=== PATIENT | female | born 1945 | race Caucasian/White ===

== ENCOUNTER → 2016-06-16 | Outpatient (CLI) | payer MEDICARE, OTHER ==
[~2016-06-16] MED LIST: ALBU17IN INH; BUPR1TAB17 PO; BUPR300T34 PO; DICL50TAB PO; DIOV80TA3 PO; FISH1000 PO; FLUT1SPR2; IMIP50TA2 PO; KLOR1TAB69 PO; METF-699 PO; METF500T PO; METR0.00 TOP; MYRB25TA PO; POTA10CA PO; SIMV20TA2 PO; SING10TA32 PO; TOVI4TAB PO; TOVI8TAB PO; TRIA37.5 PO
--- NOTE | 2016-06-16 13:30 | REPMRS ---
Patient History The patient states she had a clinical breast exam in Patient is postmenopausal and has history of ovarian cancer at age 68. No known family history of cancer. Benign excisional biopsy of the left breast, 1982. Took estrogen for 1 year. Digital Woman Screen Mammo: June 16, 2016 - Exam #: [id number] Bilateral CC and MLO view(s) were taken. Technologist: Adela Martinez, Technologist Prior study comparison: June 09, 2015, digital woman screen mammo performed at [facility]. June 08, 2014, digital woman screen mammo performed at [facility]. April 24, 2013, digital woman screen mammo performed at [facility]. FINDINGS: There are scattered fibroglandular densities. There has been no change in the appearance of the mammogram from the prior studies. There is a mild amount of scattered fibroglandular density which is fairly symmetric. There is no interval development of dominant mass, architectural distortion, or clustered microcalcification suggestive of malignancy. ASSESSMENT: BI-RADS/ACR category 1 mammogram. Negative. Recommendation Routine screening mammogram in 1 year (for women over age 40). This mammogram was interpreted with the aid of an FDA-approved computer-aided dectection system. Electronically Signed By: Kalia Doan MD 06/16/16 2701
== END ==
LOC: M WHC 12:55
PROVIDERS: ATTEND Nurse Practitioner Family
DX: Z12.31 Encounter for screening mammogram for malignant neoplasm of breast (principal)

== ENCOUNTER → 2016-07-31 | Outpatient (CLI) | payer MEDICARE, OTHER | LOC: M LAB 12:46 | PROVIDERS: ATTEND Obstetrics & Gynecology | DX: C56.1 Malignant neoplasm of right ovary (principal) ==

== ENCOUNTER → 2016-10-04 | Outpatient (REF) | payer MEDICARE, OTHER ==
[2016-10-05 14:18] LABS: PERCENT SATURATION 13.4 % (13.2-37.4)
== END ==
LOC: M LAB REF 13:18
PROVIDERS: ATTEND Internal Medicine
DX: D50.9 Iron deficiency anemia, unspecified (principal)

== ENCOUNTER → 2016-10-27 | Outpatient (CLI) | payer MEDICARE, OTHER | LOC: M LAB 08:31 | PROVIDERS: ATTEND Physician Assistant | DX: C56.1 Malignant neoplasm of right ovary (principal) ==

== ENCOUNTER 2016-11-15 21:36 | Emergency (ER) | payer MEDICARE, OTHER ==
[~2016-11-15] VITALS: Ht 172.7 cm; Wt 76.4 kg
[~2016-11-15 21:36] MED LIST changes: -BUPR1TAB17 PO; +BUPR1TAB53 PO; -IMIP50TA2 PO; +IMIP50TA3 PO; -METF500T PO; +METF500T13 PO
--- NOTE | 2016-11-15 23:50 | REPUSA ---
CT of the lumbar spine without contrast Clinical history: Pain. Technique: Multiple axial CT images were obtained through the lumbar spine without administration of contrast. Coronal and sagittal 3-D reconstructed images were also obtained. Findings: The lumbar vertebral bodies are in satisfactory positioning.. There is a 5 mm anterior spondylolisthe sis of L4 upon L5. Severe degenerative disc disease is noted at L3/L4 and L4/L5. No fractures or disl ocations are demonstrated. There is no evidence of facet subluxation. Moderate facet arthropathy is s een bilaterally, most severe at L5/S1. The neural foramen appear grossly patent. The spinal canal dem onstrates normal caliber and contour without evidence of spinal stenosis. The surrounding soft tissue s are within normal limits. Impression: 1. No acute fracture or traumatic injury. 2. Moderately severe degenerative disc disease at L3/L4 and L4/L5. 3. Grade 1anterior spondylolisthesis of L4 upon L5. 4. Moderate facet arthropathy, most severe at L5/S1.
--- NOTE | 2016-11-15 23:50 | REPUSA ---
CT of the facial bones without contrast Clinical history: Pain, injury. Technique: Multiple axial CT images were obtained through the facial bones and paranasal sinuses util izing 3 mm axial slices without administration of contrast. Coronal and sagittal reconstructions were also obtained. Findings: There are postoperative changes in the right osteomeatal complex and right maxillary sinus .. Chronic mucosal changes are seen in this region.. The other paranasal sinuses are grossly unremark able. The nasal septum is deviated leftward. The visualized mastoid air cells are clear. The osseous structures do not demonstrate any acute abnormalities. The superficial soft tissues are within normal limits. Impression: Chronic postoperative changes in the right maxillary sinus. No acute fractures or trauma tic injury appreciated.
--- NOTE | 2016-11-15 23:50 | REPUSA ---
CT of the thoracic spine without contrast Clinical history: Pain. Technique: Multiple axial CT images were obtained through the thoracic spine without administration o f contrast. Coronal and sagittal 3-D reconstructed images were also obtained. Findings: The vertebral bodies are in satisfactory positioning and alignment. No fractures or dislocations are demonstrated. Intervertebral disc spaces are well-maintained. There is no evidence of facet subluxati on. The neural foramen appear grossly patent. The spinal canal demonstrates normal caliber and contou r without evidence of spinal stenosis. The surrounding soft tissues are within normal limits. Impression: No acute traumatic injury.
[2016-11-15 23:58] VITALS: BP 142/72
== END 2016-11-16 00:19 | disposition home or self-care (01) ==
LOC: M ED 21:36
DX: S00.83XA Contusion of other part of head, initial encounter (principal); S33.5XXA Sprain of ligaments of lumbar spine, initial encounter; S23.3XXA Sprain of ligaments of thoracic spine, initial encounter; W01.0XXA Fall on same level from slipping, tripping and stumbling without subsequent striking against object, initial encounter; Y92.219 Unspecified school as the place of occurrence of the external cause; Y93.89 Activity, other specified; Y99.8 Other external cause status; M51.36 Other intervertebral disc degeneration, lumbar region; M43.16 Spondylolisthesis, lumbar region; M47.817 Spondylosis without myelopathy or radiculopathy, lumbosacral region; I10 Essential (primary) hypertension; Z85.43 Personal history of malignant neoplasm of ovary; Z90.79 Acquired absence of other genital organ(s); Z79.899 Other long term (current) drug therapy; Z88.5 Allergy status to narcotic agent; Z88.8 Allergy status to other drugs, medicaments and biological substances

== ENCOUNTER → 2017-01-31 | Outpatient (CLI) | payer MEDICARE, OTHER | LOC: M LAB 09:29 | PROVIDERS: ATTEND Physician Assistant | DX: C56.1 Malignant neoplasm of right ovary (principal) ==

== ENCOUNTER → 2017-02-23 | Outpatient (REF) | payer MEDICARE, OTHER ==
[2017-02-23 14:05] LABS: BLOOD UREA NITROGEN 23 MG/DL (7-18); CREATININE FOR GFR 0.72 MG/DL (0.55-1.02); GLOMERULAR FILTRATION RATE > 60.0 (>39)
== END ==
LOC: M LABNEURO 10:29
PROVIDERS: ATTEND Psychiatry & Neurology Neurology
DX: E11.9 Type 2 diabetes mellitus without complications (principal); I10 Essential (primary) hypertension

== ENCOUNTER → 2017-06-15 | Outpatient (CLI) | payer MEDICARE, OTHER | LOC: M WHC 10:27 | DX: Z12.31 Encounter for screening mammogram for malignant neoplasm of breast (principal) | CPT/HCPCS: 77067 ==

== ENCOUNTER → 2017-07-06 | Outpatient (CLI) | payer MEDICARE, OTHER ==
[2017-07-06 10:48] LABS: BASO % 0.7 % (0.0-1.0); EOS # 0.3 10^3/uL (0.0-0.50); EOS % 5.6 % (0.0-3.0); HEMATOCRIT 35.4 % (36.0-47.0); HEMOGLOBIN 11.3 g/dl (12.0-16.0); IMMATURE GRANULOCYTE % 0.3 % (0-3.0); LYMPH # 1.5 10^3/uL (1.5-4.5); LYMPH % 24.7 % (24.0-44.0); MEAN CORPUSCULAR HEMOGLOBIN 29.9 pg (27.0-33.0); MEAN CORPUSCULAR HGB CONC 31.9 g/dl (32.0-36.5); MEAN CORPUSCULAR VOLUME 93.7 fl (80.0-96.0); MONO # 0.5 10^3/uL (0.0-0.8); MONO % 7.7 % (0.0-5.0); NEUTROPHILS # 3.7 10^3/uL (1.8-7.7); PLATELET COUNT, AUTOMATED 241 10^3/uL (150-450); RED BLOOD COUNT 3.78 10^6/uL (4.00-5.40); RED CELL DISTRIBUTION WIDTH 12.9 % (11.5-14.5); WHITE BLOOD COUNT 6.1 10^3/uL (4.0-10.0)
[2017-07-06 11:05] LABS: ESTIMATED AVERAGE GLUCOSE 117 MG/DL (60-110); HEMOGLOBIN A1c 5.7 %
[2017-07-06 11:19] LABS: FERRITIN 34 NG/ML (8-252); IRON (FE) 59 UG/DL (50-170); PERCENT SATURATION 18.9 % (13.2-45.0); TOTAL IRON BINDING CAPACITY 312 UG/DL (250-450)
[2017-07-06 11:19] LABS: ALBUMIN 3.4 GM/DL (3.2-5.2)
== END ==
LOC: M LAB 10:16
DX: Z01.812 Encounter for preprocedural laboratory examination (principal); M25.561 Pain in right knee; M17.11 Unilateral primary osteoarthritis, right knee; D63.8 Anemia in other chronic diseases classified elsewhere; Z86.39 Personal history of other endocrine, nutritional and metabolic disease
CPT/HCPCS: 82040

== ENCOUNTER 2017-07-23 07:49 | Emergency (ER) | payer MEDICARE, OTHER | END 2017-07-23 09:24 | disposition home or self-care (01) | LOC: M ED 07:49 | DX: S52.002A Unspecified fracture of upper end of left ulna, initial encounter for closed fracture (principal); X58.XXXA Exposure to other specified factors, initial encounter; Y92.89 Other specified places as the place of occurrence of the external cause; I10 Essential (primary) hypertension; J45.909 Unspecified asthma, uncomplicated; F33.9 Major depressive disorder, recurrent, unspecified; Z79.899 Other long term (current) drug therapy; Z79.84 Long term (current) use of oral hypoglycemic drugs; Z88.5 Allergy status to narcotic agent; Z88.8 Allergy status to other drugs, medicaments and biological substances | CPT/HCPCS: 73080 ==

== ENCOUNTER → 2017-08-07 | Outpatient (REF) | payer MEDICARE, OTHER | LOC: M LAB REF 17:16 | DX: T81.4XXA Infection following a procedure, initial encounter (principal) | CPT/HCPCS: 87116 ==

== ENCOUNTER → 2017-08-31 | Outpatient (REF) | payer MEDICARE, OTHER ==
[2017-08-31 13:54] LABS: ANION GAP 7 MEQ/L (8-16); BLOOD UREA NITROGEN 21 MG/DL (7-18); CALCIUM LEVEL 8.9 MG/DL (8.8-10.2); CARBON DIOXIDE LEVEL 29 MEQ/L (21-32); CHLORIDE LEVEL 107 MEQ/L (98-107); CREATININE FOR GFR 0.87 MG/DL (0.55-1.30); GLOMERULAR FILTRATION RATE > 60.0 (>39); GLUCOSE, FASTING 115 MG/DL (70-100); POTASSIUM SERUM 3.9 MEQ/L (3.5-5.1); SODIUM LEVEL 143 MEQ/L (136-145)
== END ==
LOC: M LABDRAW1 12:47
DX: S52.222D Displaced transverse fracture of shaft of left ulna, subsequent encounter for closed fracture with routine healing (principal); Z01.812 Encounter for preprocedural laboratory examination; W18.30XD Fall on same level, unspecified, subsequent encounter; Y92.009 Unspecified place in unspecified non-institutional (private) residence as the place of occurrence of the external cause
CPT/HCPCS: 80048

== ENCOUNTER → 2017-08-31 | Outpatient (REF) | payer MEDICARE, OTHER ==
[2017-08-31 13:14] LABS: BASO # 0.1 10^3/uL (0.0-0.2); BASO % 0.7 % (0.0-1.0); EOS # 0.2 10^3/uL (0.0-0.50); HEMATOCRIT 40.5 % (36.0-47.0); HEMOGLOBIN 13.2 g/dl (12.0-15.5); IMMATURE GRANULOCYTE % 0.3 % (0-3.0); LYMPH # 1.6 10^3/uL (1.5-4.5); LYMPH % 18.2 % (24.0-44.0); MEAN CORPUSCULAR HEMOGLOBIN 30.1 pg (27.0-33.0); MEAN CORPUSCULAR HGB CONC 32.6 g/dl (32.0-36.5); MEAN CORPUSCULAR VOLUME 92.3 fl (80.0-96.0); MONO # 0.7 10^3/uL (0.0-0.8); MONO % 7.6 % (0.0-5.0); NEUTROPHILS # 6.4 10^3/uL (1.8-7.7); NEUTROPHILS % 71.2 % (36.0-66.0); PLATELET COUNT, AUTOMATED 327 10^3/uL (150-450); RED BLOOD COUNT 4.39 10^6/uL (4.00-5.40); RED CELL DISTRIBUTION WIDTH 12.5 % (11.5-14.5)
[2017-08-31 13:37] LABS: ERYTHROCYTE SEDIMENTATION RATE 25 mm/hr (0-30)
[2017-08-31 20:10] LABS: C REACTIVE PROTEIN QUANTITATIV 0.37 MG/DL (0.00-0.30)
== END ==
LOC: M LABDRAW1 11:43
DX: S52.222D Displaced transverse fracture of shaft of left ulna, subsequent encounter for closed fracture with routine healing (principal); W18.30XA Fall on same level, unspecified, initial encounter; Y92.009 Unspecified place in unspecified non-institutional (private) residence as the place of occurrence of the external cause
CPT/HCPCS: 86140

== ENCOUNTER → 2017-09-30 | Outpatient (REF) | payer MEDICARE, OTHER | LOC: M LAB REF 08:56 | DX: N39.0 Urinary tract infection, site not specified (principal) | CPT/HCPCS: 87088; 87186 ==

== ENCOUNTER 2017-10-04 19:34 | Emergency (ER) | payer MEDICARE, OTHER ==
[2017-10-04] MEDS: NS 500 ML IV (21:00)
[2017-10-04 21:13] LABS: BASO # 0.1 10^3/uL (0.0-0.2); BASO % 0.7 % (0.0-1.0); EOS # 0.1 10^3/uL (0.0-0.50); EOS % 0.9 % (0.0-3.0); HEMATOCRIT 39.2 % (36.0-47.0); HEMOGLOBIN 12.9 g/dl (12.0-15.5); IMMATURE GRANULOCYTE % 0.7 % (0-3.0); LYMPH # 1.7 10^3/uL (1.5-4.5); LYMPH % 15.6 % (24.0-44.0); MEAN CORPUSCULAR HEMOGLOBIN 29.8 pg (27.0-33.0); MEAN CORPUSCULAR HGB CONC 32.9 g/dl (32.0-36.5); MEAN CORPUSCULAR VOLUME 90.5 fl (80.0-96.0); MONO # 0.7 10^3/uL (0.0-0.8); MONO % 6.8 % (0.0-5.0); NEUTROPHILS % 75.3 % (36.0-66.0); PLATELET COUNT, AUTOMATED 345 10^3/uL (150-450); RED BLOOD COUNT 4.33 10^6/uL (4.00-5.40); RED CELL DISTRIBUTION WIDTH 12.5 % (11.5-14.5); WHITE BLOOD COUNT 10.6 10^3/uL (4.0-10.0)
[2017-10-04 21:36] LABS: ALBUMIN 3.8 GM/DL (3.2-5.2); ALBUMIN/GLOBULIN RATIO 1.27 (1.00-1.93); ALKALINE PHOSPHATASE 129 U/L (45-117); ALT/SGPT 29 U/L (12-78); ANION GAP 7 MEQ/L (8-16); AST/SGOT 24 U/L (7-37); BILIRUBIN,DIRECT 0.1 MG/DL (0.0-0.2); BILIRUBIN,TOTAL 0.4 MG/DL (0.2-1.0); BLOOD UREA NITROGEN 31 MG/DL (7-18); CALCIUM LEVEL 8.7 MG/DL (8.8-10.2); CARBON DIOXIDE LEVEL 29 MEQ/L (21-32); CHLORIDE LEVEL 103 MEQ/L (98-107); CREATININE FOR GFR 1.51 MG/DL (0.55-1.30); GLOMERULAR FILTRATION RATE 36.2 (>39); GLUCOSE, FASTING 114 MG/DL (70-100); LIPASE 81 U/L (73-393); POTASSIUM SERUM 4.4 MEQ/L (3.5-5.1); SODIUM LEVEL 139 MEQ/L (136-145); TOTAL PROTEIN 6.8 GM/DL (6.4-8.2)
[2017-10-04] MEDS: GASTROGRAFIN SOLUTION 30ML PO ×2 (21:43→22:00)
[2017-10-05] MEDS ORDERED: FLEET OIL RETENTION ENEMA PR (00:15)
== END 2017-10-05 00:35 | disposition home or self-care (01) ==
LOC: M ED 10-05 00:35
DX: K59.00 Constipation, unspecified (principal); R11.2 Nausea with vomiting, unspecified; I10 Essential (primary) hypertension; J45.909 Unspecified asthma, uncomplicated; Z79.899 Other long term (current) drug therapy; Z79.82 Long term (current) use of aspirin; Z88.5 Allergy status to narcotic agent; Z88.8 Allergy status to other drugs, medicaments and biological substances
CPT/HCPCS: Q9963

== ENCOUNTER → 2017-10-23 | Outpatient (REF) | payer MEDICARE, OTHER ==
[2017-10-23 15:18] LABS: BASO # 0.1 10^3/uL (0.0-0.2); BASO % 0.9 % (0.0-1.0); EOS # 0.2 10^3/uL (0.0-0.50); EOS % 4.2 % (0.0-3.0); HEMOGLOBIN 11.9 g/dl (12.0-15.5); IMMATURE GRANULOCYTE % 0.4 % (0-3.0); LYMPH # 1.3 10^3/uL (1.5-4.5); LYMPH % 23.1 % (24.0-44.0); MEAN CORPUSCULAR HEMOGLOBIN 29.8 pg (27.0-33.0); MEAN CORPUSCULAR HGB CONC 32.2 g/dl (32.0-36.5); MEAN CORPUSCULAR VOLUME 92.5 fl (80.0-96.0); MONO # 0.5 10^3/uL (0.0-0.8); MONO % 8.5 % (0.0-5.0); NEUTROPHILS # 3.5 10^3/uL (1.8-7.7); NEUTROPHILS % 62.9 % (36.0-66.0); PLATELET COUNT, AUTOMATED 318 10^3/uL (150-450); RED CELL DISTRIBUTION WIDTH 13.1 % (11.5-14.5); WHITE BLOOD COUNT 5.5 10^3/uL (4.0-10.0)
[2017-10-23 16:10] LABS: ERYTHROCYTE SEDIMENTATION RATE 41 mm/hr (0-30)
== END ==
LOC: M LAB REF 13:07
DX: S52.22 Transverse fracture of shaft of ulna (principal); W18.30XA Fall on same level, unspecified, initial encounter; Y92.009 Unspecified place in unspecified non-institutional (private) residence as the place of occurrence of the external cause
CPT/HCPCS: 86140

== ENCOUNTER → 2017-11-01 | Outpatient (REF) | payer MEDICARE, OTHER | LOC: M SFHCPLAZ 13:14 | DX: T81.4XXA Infection following a procedure, initial encounter (principal); Z98.890 Other specified postprocedural states | CPT/HCPCS: 87102 ==

== ENCOUNTER → 2017-11-07 | Outpatient (CLI) | payer MEDICARE, OTHER ==
[2017-11-07 19:13] LABS: ANION GAP 6 MEQ/L (8-16); BLOOD UREA NITROGEN 17 MG/DL (7-18); CALCIUM LEVEL 8.5 MG/DL (8.8-10.2); CARBON DIOXIDE LEVEL 29 MEQ/L (21-32); CHLORIDE LEVEL 109 MEQ/L (98-107); CREATININE FOR GFR 0.68 MG/DL (0.55-1.30); GLOMERULAR FILTRATION RATE > 60.0 (>39); GLUCOSE, FASTING 89 MG/DL (70-100); POTASSIUM SERUM 4.1 MEQ/L (3.5-5.1); SODIUM LEVEL 144 MEQ/L (136-145)
== END ==
LOC: M LAB 17:43
DX: E11.9 Type 2 diabetes mellitus without complications (principal)
CPT/HCPCS: 80048

== ENCOUNTER → 2017-11-08 | Outpatient (REF) | payer MEDICARE, OTHER | LOC: M LAB REF 17:20 | DX: L98.9 Disorder of the skin and subcutaneous tissue, unspecified (principal) | CPT/HCPCS: 87186 ==

== ENCOUNTER → 2017-11-29 | Outpatient (CLI) | payer MEDICARE, OTHER | LOC: M WHC 12:22 | DX: M84.33 Stress fracture, ulna and radius (principal); Z13.820 Encounter for screening for osteoporosis; Z78.0 Asymptomatic menopausal state | CPT/HCPCS: 77080 ==

== ENCOUNTER → 2017-12-14 | Outpatient (REF) | payer MEDICARE, OTHER ==
[2017-12-14 09:40] LABS: BASO # 0.1 10^3/uL (0.0-0.2); BASO % 0.5 % (0.0-1.0); EOS # 0.1 10^3/uL (0.0-0.50); EOS % 1.5 % (0.0-3.0); HEMATOCRIT 30.4 % (36.0-47.0); HEMOGLOBIN 9.8 g/dl (12.0-15.5); IMMATURE GRANULOCYTE % 0.4 % (0-3.0); LYMPH # 1.2 10^3/uL (1.5-4.5); LYMPH % 13.2 % (24.0-44.0); MEAN CORPUSCULAR HEMOGLOBIN 29.9 pg (27.0-33.0); MEAN CORPUSCULAR HGB CONC 32.2 g/dl (32.0-36.5); MEAN CORPUSCULAR VOLUME 92.7 fl (80.0-96.0); MONO # 0.6 10^3/uL (0.0-0.8); NEUTROPHILS # 7.3 10^3/uL (1.8-7.7); NEUTROPHILS % 78.4 % (36.0-66.0); PLATELET COUNT, AUTOMATED 254 10^3/uL (150-450); RED BLOOD COUNT 3.28 10^6/uL (4.00-5.40); WHITE BLOOD COUNT 9.3 10^3/uL (4.0-10.0)
[2017-12-14 10:00] LABS: ALBUMIN 2.6 GM/DL (3.2-5.2); ALKALINE PHOSPHATASE 95 U/L (45-117); ALT/SGPT 15 U/L (12-78); ANION GAP 8 MEQ/L (8-16); AST/SGOT 19 U/L (7-37); BILIRUBIN,TOTAL 0.3 MG/DL (0.2-1.0); BLOOD UREA NITROGEN 10 MG/DL (7-18); C REACTIVE PROTEIN QUANTITATIV 4.29 MG/DL (0.00-0.30); CALCIUM LEVEL 8.3 MG/DL (8.8-10.2); CARBON DIOXIDE LEVEL 26 MEQ/L (21-32); CHLORIDE LEVEL 111 MEQ/L (98-107); CREATININE FOR GFR 0.74 MG/DL (0.55-1.30); GLOMERULAR FILTRATION RATE > 60.0 (>39); GLUCOSE, FASTING 97 MG/DL (70-100); POTASSIUM SERUM 3.8 MEQ/L (3.5-5.1); SODIUM LEVEL 145 MEQ/L (136-145); TOTAL PROTEIN 5.5 GM/DL (6.4-8.2); VANCOMYCIN LEVEL TROUGH 13.8 UG/ML (10.0-20.0)
[2017-12-14 10:17] LABS: ERYTHROCYTE SEDIMENTATION RATE 56 mm/hr (0-30)
== END ==
LOC: M LAB REF 09:31
DX: Z79.2 Long term (current) use of antibiotics (principal); A49.1 Streptococcal infection, unspecified site
CPT/HCPCS: 80053

== ENCOUNTER → 2017-12-17 | Outpatient (REF) | payer MEDICARE, OTHER ==
[2017-12-17 09:24] LABS: BASO % 0.7 % (0.0-1.0); EOS % 2.8 % (0.0-3.0); HEMATOCRIT 29.9 % (36.0-47.0); HEMOGLOBIN 9.6 g/dl (12.0-15.5); IMMATURE GRANULOCYTE % 0.4 % (0-3.0); LYMPH % 28.5 % (24.0-44.0); MEAN CORPUSCULAR HEMOGLOBIN 29.8 pg (27.0-33.0); MEAN CORPUSCULAR HGB CONC 32.1 g/dl (32.0-36.5); MEAN CORPUSCULAR VOLUME 92.9 fl (80.0-96.0); MONO % 10.7 % (0.0-5.0); NEUTROPHILS % 56.9 % (36.0-66.0); PLATELET COUNT, AUTOMATED 284 10^3/uL (150-450); RED BLOOD COUNT 3.22 10^6/uL (4.00-5.40); RED CELL DISTRIBUTION WIDTH 13.2 % (11.5-14.5); WHITE BLOOD COUNT 5.4 10^3/uL (4.0-10.0)
[2017-12-17 09:25] LABS: EOS # 0.2 10^3/uL (0.0-0.50); LYMPH # 1.6 10^3/uL (1.5-4.5); MONO # 0.6 10^3/uL (0.0-0.8); NEUTROPHILS # 3.1 10^3/uL (1.8-7.7)
[2017-12-17 09:42] LABS: ALBUMIN 2.9 GM/DL (3.2-5.2); ALKALINE PHOSPHATASE 94 U/L (45-117); ALT/SGPT 12 U/L (12-78); ANION GAP 6 MEQ/L (8-16); AST/SGOT 21 U/L (7-37); BILIRUBIN,TOTAL 0.3 MG/DL (0.2-1.0); BLOOD UREA NITROGEN 11 MG/DL (7-18); C REACTIVE PROTEIN QUANTITATIV 0.64 MG/DL (0.00-0.30); CALCIUM LEVEL 8.3 MG/DL (8.8-10.2); CARBON DIOXIDE LEVEL 28 MEQ/L (21-32); CHLORIDE LEVEL 110 MEQ/L (98-107); CREATININE FOR GFR 0.72 MG/DL (0.55-1.30); GLOMERULAR FILTRATION RATE > 60.0 (>39); GLUCOSE, FASTING 88 MG/DL (70-100); POTASSIUM SERUM 4.4 MEQ/L (3.5-5.1); SODIUM LEVEL 144 MEQ/L (136-145); TOTAL PROTEIN 5.8 GM/DL (6.4-8.2); VANCOMYCIN LEVEL TROUGH 15.5 UG/ML (10.0-20.0)
[2017-12-17 10:08] LABS: ERYTHROCYTE SEDIMENTATION RATE 46 mm/hr (0-30)
== END ==
LOC: M SHH 08:49
DX: A49.1 Streptococcal infection, unspecified site (principal); B95.8 Unspecified staphylococcus as the cause of diseases classified elsewhere; Z79.2 Long term (current) use of antibiotics
CPT/HCPCS: 80053

== ENCOUNTER → 2017-12-24 | Outpatient (REF) | payer MEDICARE, OTHER ==
[2017-12-24 10:48] LABS: BASO % 0.7 % (0.0-1.0); EOS # 0.2 10^3/uL (0.0-0.50); EOS % 3.6 % (0.0-3.0); HEMATOCRIT 31.9 % (36.0-47.0); HEMOGLOBIN 10.2 g/dl (12.0-15.5); IMMATURE GRANULOCYTE % 0.5 % (0-3.0); LYMPH # 1.5 10^3/uL (1.5-4.5); MEAN CORPUSCULAR VOLUME 93.8 fl (80.0-96.0); MONO # 0.5 10^3/uL (0.0-0.8); MONO % 7.7 % (0.0-5.0); NEUTROPHILS # 3.9 10^3/uL (1.8-7.7); NEUTROPHILS % 63.5 % (36.0-66.0); PLATELET COUNT, AUTOMATED 313 10^3/uL (150-450); RED CELL DISTRIBUTION WIDTH 13.8 % (11.5-14.5); WHITE BLOOD COUNT 6.1 10^3/uL (4.0-10.0)
[2017-12-24 10:53] LABS: ALBUMIN 3.2 GM/DL (3.2-5.2); ALKALINE PHOSPHATASE 112 U/L (45-117); ALT/SGPT 13 U/L (12-78); ANION GAP 6 MEQ/L (8-16); AST/SGOT 23 U/L (7-37); BILIRUBIN,TOTAL 0.2 MG/DL (0.2-1.0); BLOOD UREA NITROGEN 20 MG/DL (7-18); C REACTIVE PROTEIN QUANTITATIV < 0.30 MG/DL (0.00-0.30); CALCIUM LEVEL 8.4 MG/DL (8.8-10.2); CARBON DIOXIDE LEVEL 26 MEQ/L (21-32); CHLORIDE LEVEL 110 MEQ/L (98-107); CREATININE FOR GFR 0.79 MG/DL (0.55-1.30); GLOMERULAR FILTRATION RATE > 60.0 (>39); GLUCOSE, FASTING 100 MG/DL (70-100); POTASSIUM SERUM 4.4 MEQ/L (3.5-5.1); SODIUM LEVEL 142 MEQ/L (136-145); TOTAL PROTEIN 6.1 GM/DL (6.4-8.2); VANCOMYCIN LEVEL TROUGH 17.2 UG/ML (10.0-20.0)
[2017-12-24 12:14] LABS: ERYTHROCYTE SEDIMENTATION RATE 17 mm/hr (0-30)
== END ==
LOC: M LAB REF 10:17
DX: A49.1 Streptococcal infection, unspecified site (principal); B95.8 Unspecified staphylococcus as the cause of diseases classified elsewhere; Z79.2 Long term (current) use of antibiotics
CPT/HCPCS: 80053

== ENCOUNTER → 2017-12-31 | Outpatient (REF) | payer MEDICARE, OTHER ==
[2017-12-31 10:08] LABS: BASO % 0.2 % (0.0-1.0); EOS # 0.1 10^3/uL (0.0-0.50); EOS % 1.6 % (0.0-3.0); HEMATOCRIT 32.9 % (36.0-47.0); HEMOGLOBIN 10.3 g/dl (12.0-15.5); IMMATURE GRANULOCYTE % 0.4 % (0-3.0); LYMPH # 1.5 10^3/uL (1.5-4.5); LYMPH % 29.4 % (24.0-44.0); MEAN CORPUSCULAR HEMOGLOBIN 29.9 pg (27.0-33.0); MEAN CORPUSCULAR HGB CONC 31.3 g/dl (32.0-36.5); MEAN CORPUSCULAR VOLUME 95.6 fl (80.0-96.0); MONO # 0.5 10^3/uL (0.0-0.8); MONO % 9.1 % (0.0-5.0); NEUTROPHILS % 59.3 % (36.0-66.0); PLATELET COUNT, AUTOMATED 273 10^3/uL (150-450); RED BLOOD COUNT 3.44 10^6/uL (4.00-5.40); RED CELL DISTRIBUTION WIDTH 13.8 % (11.5-14.5)
[2017-12-31 10:26] LABS: ERYTHROCYTE SEDIMENTATION RATE 35 mm/hr (0-30)
[2017-12-31 10:42] LABS: ALBUMIN 3.2 GM/DL (3.2-5.2); ALBUMIN/GLOBULIN RATIO 1.14 (1.00-1.93); ALKALINE PHOSPHATASE 98 U/L (45-117); ALT/SGPT 18 U/L (12-78); ANION GAP 9 MEQ/L (8-16); AST/SGOT 28 U/L (7-37); BILIRUBIN,TOTAL 0.2 MG/DL (0.2-1.0); BLOOD UREA NITROGEN 17 MG/DL (7-18); C REACTIVE PROTEIN QUANTITATIV < 0.30 MG/DL (0.00-0.30); CALCIUM LEVEL 8.6 MG/DL (8.8-10.2); CARBON DIOXIDE LEVEL 26 MEQ/L (21-32); CHLORIDE LEVEL 109 MEQ/L (98-107); CREATININE FOR GFR 0.77 MG/DL (0.55-1.30); GLOMERULAR FILTRATION RATE > 60.0 (>39); GLUCOSE, FASTING 86 MG/DL (70-100); POTASSIUM SERUM 4.7 MEQ/L (3.5-5.1); SODIUM LEVEL 144 MEQ/L (136-145); VANCOMYCIN LEVEL TROUGH 16.5 UG/ML (10.0-20.0)
== END ==
LOC: M SHH 09:37
DX: A49.1 Streptococcal infection, unspecified site (principal); Z79.2 Long term (current) use of antibiotics
CPT/HCPCS: 80053

== ENCOUNTER → 2018-01-07 | Outpatient (REF) | payer MEDICARE, OTHER ==
[2018-01-07 12:17] LABS: ALBUMIN 3.3 GM/DL (3.2-5.2); ALKALINE PHOSPHATASE 98 U/L (45-117); ALT/SGPT 18 U/L (12-78); ANION GAP 9 MEQ/L (8-16); AST/SGOT 23 U/L (7-37); BILIRUBIN,TOTAL 0.2 MG/DL (0.2-1.0); BLOOD UREA NITROGEN 20 MG/DL (7-18); C REACTIVE PROTEIN QUANTITATIV < 0.30 MG/DL (0.00-0.30); CALCIUM LEVEL 8.7 MG/DL (8.8-10.2); CARBON DIOXIDE LEVEL 26 MEQ/L (21-32); CHLORIDE LEVEL 109 MEQ/L (98-107); CREATININE FOR GFR 0.78 MG/DL (0.55-1.30); GLOMERULAR FILTRATION RATE > 60.0 (>39); GLUCOSE, FASTING 94 MG/DL (70-100); POTASSIUM SERUM 4.5 MEQ/L (3.5-5.1); SODIUM LEVEL 144 MEQ/L (136-145); TOTAL PROTEIN 6.3 GM/DL (6.4-8.2); VANCOMYCIN LEVEL TROUGH 18.5 UG/ML (10.0-20.0)
[2018-01-07 13:02] LABS: BASO % 0.2 % (0.0-1.0); EOS # 0.1 10^3/uL (0.0-0.50); EOS % 2.1 % (0.0-3.0); HEMATOCRIT 32.7 % (36.0-47.0); HEMOGLOBIN 10.3 g/dl (12.0-15.5); IMMATURE GRANULOCYTE % 0.6 % (0-3.0); LYMPH # 1.4 10^3/uL (1.5-4.5); LYMPH % 27.2 % (24.0-44.0); MEAN CORPUSCULAR HEMOGLOBIN 29.8 pg (27.0-33.0); MEAN CORPUSCULAR HGB CONC 31.5 g/dl (32.0-36.5); MEAN CORPUSCULAR VOLUME 94.5 fl (80.0-96.0); MONO # 0.4 10^3/uL (0.0-0.8); MONO % 8.2 % (0.0-5.0); NEUTROPHILS # 3.2 10^3/uL (1.8-7.7); NEUTROPHILS % 61.7 % (36.0-66.0); PLATELET COUNT, AUTOMATED 242 10^3/uL (150-450); RED BLOOD COUNT 3.46 10^6/uL (4.00-5.40); RED CELL DISTRIBUTION WIDTH 13.7 % (11.5-14.5); WHITE BLOOD COUNT 5.2 10^3/uL (4.0-10.0)
[2018-01-07 14:12] LABS: ERYTHROCYTE SEDIMENTATION RATE 25 mm/hr (0-30)
== END ==
LOC: M SHH 11:31
DX: A49.1 Streptococcal infection, unspecified site (principal); B95.8 Unspecified staphylococcus as the cause of diseases classified elsewhere; Z79.2 Long term (current) use of antibiotics
CPT/HCPCS: 80053

== ENCOUNTER 2018-03-14 07:26 | Day surgery (SDC) | payer MEDICARE, OTHER ==
[~2018-03-14 07:26] MED LIST changes: -ALBU17IN INH; -BUPR1TAB53 PO; -BUPR300T34 PO; -DICL50TAB PO; -DIOV80TA3 PO; -FISH1000 PO; -FLUT1SPR2; -IMIP50TA3 PO; -KLOR1TAB69 PO; +LIDOCAINE 2% INJ 100 MG/5 ML SDV (FOR ANES.) As Ordered; -METF-699 PO; -METF500T13 PO; -METR0.00 TOP; -MYRB25TA PO; -POTA10CA PO; +PROPOFOL 200 MG/20 ML VIAL As Ordered; -SIMV20TA2 PO; -SING10TA32 PO; -TOVI4TAB PO; -TOVI8TAB PO; -TRIA37.5 PO
[2018-03-14] MEDS: NS 1,000 ML IV (07:45)
[2018-03-14] MEDS ORDERED: PROPOFOL 200 MG/20 ML VIAL As Ordered (09:04)
== END 2018-03-14 10:06 | disposition home or self-care (01) ==
LOC: M OPP 07:26
DX: K59.00 Constipation, unspecified (principal); K57.30 Diverticulosis of large intestine without perforation or abscess without bleeding; R11.0 Nausea; K31.89 Other diseases of stomach and duodenum; I10 Essential (primary) hypertension; E78.5 Hyperlipidemia, unspecified; E11.9 Type 2 diabetes mellitus without complications; F32.9 Major depressive disorder, single episode, unspecified; R32 Unspecified urinary incontinence; C56.1 Malignant neoplasm of right ovary; Z85.841 Personal history of malignant neoplasm of brain; Z92.21 Personal history of antineoplastic chemotherapy; Z98.1 Arthrodesis status; Z96.641 Presence of right artificial hip joint; Z88.8 Allergy status to other drugs, medicaments and biological substances; Z88.5 Allergy status to narcotic agent; Z79.82 Long term (current) use of aspirin; Z79.899 Other long term (current) drug therapy
CPT/HCPCS: 45378

== ENCOUNTER → 2018-04-22 | Outpatient (CLI) | payer MEDICARE, OTHER ==
[2018-04-22 11:17] LABS: BASO % 0.6 % (0.0-1.0); EOS # 0.3 10^3/uL (0.0-0.50); EOS % 4.1 % (0.0-3.0); HEMATOCRIT 36.5 % (36.0-47.0); HEMOGLOBIN 11.4 g/dl (12.0-15.5); IMMATURE GRANULOCYTE % 0.5 % (0-3.0); LYMPH # 1.3 10^3/uL (1.5-4.5); LYMPH % 19.6 % (24.0-44.0); MEAN CORPUSCULAR HEMOGLOBIN 28.8 pg (27.0-33.0); MEAN CORPUSCULAR HGB CONC 31.2 g/dl (32.0-36.5); MEAN CORPUSCULAR VOLUME 92.2 fl (80.0-96.0); MONO # 0.6 10^3/uL (0.0-0.8); MONO % 8.6 % (0.0-5.0); NEUTROPHILS # 4.3 10^3/uL (1.8-7.7); NEUTROPHILS % 66.6 % (36.0-66.0); PLATELET COUNT, AUTOMATED 285 10^3/uL (150-450); RED BLOOD COUNT 3.96 10^6/uL (4.00-5.40); RED CELL DISTRIBUTION WIDTH 13.6 % (11.5-14.5); WHITE BLOOD COUNT 6.4 10^3/uL (4.0-10.0)
[2018-04-22 11:37] LABS: ESTIMATED AVERAGE GLUCOSE 117 MG/DL (60-110); HEMOGLOBIN A1c 5.7 %
[2018-04-22 11:48] LABS: FERRITIN 32 NG/ML (8-252); IRON (FE) 33 UG/DL (50-170); PERCENT SATURATION 12.8 % (13.2-45.0); TOTAL IRON BINDING CAPACITY 258 UG/DL (250-450)
[2018-04-22 11:48] LABS: ALBUMIN 3.1 GM/DL (3.2-5.2)
== END ==
LOC: M LAB 10:47
DX: Z01.818 Encounter for other preprocedural examination (principal); Z86.39 Personal history of other endocrine, nutritional and metabolic disease; D63.8 Anemia in other chronic diseases classified elsewhere; M17.11 Unilateral primary osteoarthritis, right knee; M25.561 Pain in right knee
CPT/HCPCS: 82040

== ENCOUNTER → 2018-05-24 | Outpatient (CLI) | payer MEDICARE, OTHER ==
[~2018-05-24] MED LIST changes: +ALBU17IN INH; +ASPI81TA85 PO; +BACITAB PO; +BUPR1TAB53 PO; +BUPR300T34 PO; +CEFD1CAP8; +CICL8SOL3 TOP; +DICL50TAB PO; +DIOV80TA3 PO; +FERR325T3 PO; +FISH1000 PO; +FISH1CAP20 PO; +FLON1SPR; +FLUT1SPR2; +GABA-843 PO; +GLYC2SUP PR; +IMIP50TA3 PO; +KLOR10TA76 PO; +KLOR1TAB69 PO; -LIDOCAINE 2% INJ 100 MG/5 ML SDV (FOR ANES.) As Ordered; +LOSA50TA88 PO; +MELA10CA PO; +METF-699 PO; +METF500T13 PO; +METR0.00 TOP; +METR0.753 TOP; +METR0.7533 TOP; +MIRA3350 PO; +MYRB25TA PO; +NYST50SS PO; +PANT40TA3 PO; +PROB250C PO; -PROPOFOL 200 MG/20 ML VIAL As Ordered; +SIMV20TA2 PO; +SING10TA32 PO; +TOVI4TAB PO; +TOVI8TAB PO; +TRIA37.5 PO; +VENTAER INH; +VITA-176 PO; +VITA100067 PO; +VITMTA PO; +ZOFR4TAB14 PO
--- NOTE | 2018-05-24 16:35 | REPMRS ---
Patient History The patient states she had a clinical breast exam in 11/2017. Patient is postmenopausal, has history of ovarian cancer at age 68, and had previous chemotherapy at age 68. No known family history of cancer. Benign excisional biopsy of the left breast, 1982. Taking estrogen for 3 years. Digital Woman Screen Mammo: May 24, 2018 - Exam #: [id number] Bilateral CC and MLO view(s) were taken. Technologist: Kristi Holt, Technologist Prior study comparison: June 15, 2017, digital woman screen mammo performed at [facility]. June 16, 2016, digital woman screen mammo performed at [facility]. June 09, 2015, digital woman screen mammo performed at [facility]. FINDINGS: There are scattered fibroglandular densities. There has been no change in the appearance of the mammogram from the prior studies. There is a mild amount of scattered fibroglandular density which is fairly symmetric. There is no interval development of dominant mass, architectural distortion, or clustered microcalcification suggestive of malignancy. 3-D tomosynthesis shows no additional findings. Assessment: BI-RADS/ACR category 1 mammogram. Negative. Recommendation Routine screening mammogram of both breasts in 1 year (for women over age 40). This patient's Lifetime Breast Cancer RIsk is estimated at 5.0 %. This mammogram was interpreted with the aid of an FDA-approved computer-aided dectection system. Electronically Signed By: Kalia Doan MD 05/24/18 [id number]
== END ==
LOC: M WHC 12:52
PROVIDERS: ATTEND Internal Medicine
DX: Z12.31 Encounter for screening mammogram for malignant neoplasm of breast (principal); Z78.0 Asymptomatic menopausal state

== ENCOUNTER → 2018-06-06 | Outpatient (REF) | payer MEDICARE, OTHER | LOC: M LAB REF 16:46 | PROVIDERS: ATTEND Internal Medicine | DX: M25.561 Pain in right knee (principal) ==

== ENCOUNTER → 2018-07-15 | Outpatient (REF) | payer MEDICARE, OTHER | LOC: M LAB REF 14:00 | PROVIDERS: ATTEND Internal Medicine | DX: R79.82 Elevated C-reactive protein (CRP) (principal) ==

== ENCOUNTER → 2018-08-27 | Outpatient (REF) | payer MEDICARE, OTHER | LOC: M LAB REF 17:01 | PROVIDERS: ATTEND Internal Medicine | DX: C56.1 Malignant neoplasm of right ovary (principal) ==

== ENCOUNTER → 2019-02-05 | Outpatient (REF) | payer MEDICARE, OTHER | LOC: M LAB REF 12:21 | PROVIDERS: ATTEND Internal Medicine | DX: C56.1 Malignant neoplasm of right ovary (principal) ==

== ENCOUNTER → 2019-06-23 | Outpatient (CLI) | payer MEDICARE, OTHER ==
[~2019-06-23] MED LIST changes: -BUPR300T34 PO; +BUPR300T92 PO; -SIMV20TA2 PO; +SIMV20TA22 PO
--- NOTE | 2019-06-23 11:10 | REP ---
CT study bilateral lower extremities without contrast: History: Assess leg length. Technique: Helical scanning is acquired and 3 mm axial images are reformatted. Coronal and sagittal MPR images are generated. Scan range is from the superior pelvis to the ankles. CT findings: Digital preliminary football scout radiograph demonstrates a right hip arthroplasty, a right knee arthroplasty, and an old tib-fib fracture on the right as well. There are three nodular opacities projecting in the peritrochanteric region on the football scout view on the right which are related to clothing artifact. The football scout view is utilized to measure the femurs and tibias bilaterally. It should be noted that the knee and hip arthroplasties on the right may affect these measurements to some degree. The length of the left femur is 45.6 cm. The length of the right femur is 46.7 cm. The length of the left tibia measures 37.2 cm and that of the right 34.8 cm. On axial and MPR images, the prosthetic right hip and knee arthroplasties appear in good position. There is no CT evidence to suggest loosening. There is bilateral greater trochanteric spurring. There is moderate osteoarthritis of the medial and lateral femorotibial compartments of the left knee. There is moderate patellofemoral spurring as well. There is some quadriceps tendon insertion site spurring on the left patellar upper pole. No bony destructive lesion is appreciated on either side. There is greater trochanteric spurring on the left with some adjacent soft tissue calcification. Incidental note is made of a pelvic floor support device in the vagina. At the old tib-fib fracture, there is osseous bridging between the adjacent tibial and fibular fractures. There is no evidence of nonunion of the tibial or fibular fracture. There is bilateral ankle osteoarthritis, right more prominent than left. Impression: Status post right hip and knee arthroplasties. Left knee osteoarthritis. Status post right tib-fib fractures with healing and osseous bridging. There is some right hip ankle osteoarthritis as well. Leg length measurements as above. Electronically Signed by Andreas Doan MD 06/23/2019 11:49 A
== END ==
LOC: M RAD 09:20
PROVIDERS: ATTEND Orthopaedic Surgery
DX: Z96.651 Presence of right artificial knee joint (principal); Z96.641 Presence of right artificial hip joint; M17.12 Unilateral primary osteoarthritis, left knee

== ENCOUNTER → 2019-08-06 | Outpatient (REF) | payer MEDICARE, OTHER | LOC: M LAB REF 12:19 | PROVIDERS: ATTEND Internal Medicine | DX: Z01.89 Encounter for other specified special examinations (principal) ==

== ENCOUNTER → 2019-11-11 | Outpatient (REF) | payer MEDICARE, OTHER | LOC: M LAB REF 12:34 | PROVIDERS: ATTEND Internal Medicine | DX: C56.1 Malignant neoplasm of right ovary (principal) ==

== ENCOUNTER → 2020-06-10 | Outpatient (CLI) | payer MEDICARE, OTHER ==
[~2020-06-10] MED LIST changes: -ASPI81TA85 PO; +ASPI81TA86 PO; +GABA-282 PO; -GABA-843 PO; -METF-699 PO; +METF-817 PO; +PANT40TA29 PO; -PANT40TA3 PO
--- NOTE | 2020-06-10 10:36 | REPMRS ---
Patient History The patient states she has not had a clinical breast exam in over a year. Patient is postmenopausal, has history of ovarian cancer at age 68, and had previous chemotherapy at age 68. Family history of endometrial cancer at age 55 in mother. Benign excisional biopsy of the left breast, 1982. Took estrogen for 3 years. 3D TOMOSYNTHESIS WAS PERFORMED. [facility] lifetime risk for breast cancer is 4.4%. Volpara breast density b. Digital Woman Screen Mammo: June 10, 2020 - Exam #: [id number] Bilateral CC and MLO view(s) were taken. Technologist: Jillian Stewart, Tejaologist Prior study comparison: June 05, 2019, bilateral digital woman screen mammo performed at [facility]. May 24, 2018, bilateral digital woman screen mammo performed at [facility]. FINDINGS: There are scattered fibroglandular densities. There has been no change in the appearance of the mammogram from the prior studies. There is a mild amount of residual fibroglandular tissue which is fairly symmetric. There is no interval development of dominant mass, architectural distortion, or clustered microcalcification suggestive of malignancy. Assessment: BI-RADS/ACR category 1 mammogram. Negative Mammogram. Recommendation Routine screening mammogram in 1 year (for women over age 40). This mammogram was interpreted with the aid of an FDA-approved computer-aided dectection system. Electronically Signed By: Fabio Cameron MD 06/10/20 [id number]
== END ==
LOC: M WHC 09:32
PROVIDERS: ATTEND Internal Medicine
DX: Z12.31 Encounter for screening mammogram for malignant neoplasm of breast (principal)

== ENCOUNTER → 2020-07-06 | Outpatient (REF) | payer MEDICARE, OTHER ==
[2020-07-06 16:33] LABS: C REACTIVE PROTEIN QUANTITATIV < 0.30 MG/DL (0.00-0.30); RHEUMATOID FACTOR QUANT < 10.0 IU/ML (<15.0); URIC ACID 4.7 MG/DL (2.6-6.0)
[2020-07-08 13:07] LABS: ANTINUCLEAR ANTIBODIES DIRECT Negative (Negative)
== END ==
LOC: M LAB REF 16:06
PROVIDERS: ATTEND Internal Medicine
DX: M25.531 Pain in right wrist (principal)

== ENCOUNTER → 2020-07-15 | Outpatient (CLI) | payer MEDICARE, OTHER ==
--- NOTE | 2020-07-15 10:44 | REP ---
INDICATION: HALLUX VALGUS (ACQUIRED), RIGHT FOOT/LABS COMPARISON: 12/12/2015. TECHNIQUE: PA/Lateral FINDINGS: Lungs: Clear, no infiltrate. Heart: Normal in size. Mediastinum: Mediastinal silhouette unremarkable. Pleural angles: Unremarkable.. Bones and soft tissues: There degenerative changes of the spine without compression deformity. There is metallic fixation in the cervical spine. IMPRESSION: No acute pulmonary disease. <Electronically signed by Fabio Cameron > 07/15/20 [id number]
[2020-07-15 10:56] LABS: BASO % 0.6 % (0.0-1.0); EOS # 0.2 10^3/uL (0.0-0.5); EOS % 2.7 % (0.0-3.0); HEMATOCRIT 41.3 % (36.0-47.0); HEMOGLOBIN 12.9 g/dl (12.0-15.5); LYMPH # 1.5 10^3/uL (1.5-5.0); LYMPH % 23.6 % (24.0-44.0); MEAN CORPUSCULAR HEMOGLOBIN 28.8 pg (27.0-33.0); MEAN CORPUSCULAR HGB CONC 31.2 g/dl (32.0-36.5); MEAN CORPUSCULAR VOLUME 92.2 fl (80.0-96.0); MONO # 0.5 10^3/uL (0.0-0.8); MONO % 7.8 % (2.0-8.0); NEUTROPHILS # 4.1 10^3/uL (1.5-8.5); PLATELET COUNT, AUTOMATED 213 10^3/uL (150-450); RED BLOOD COUNT 4.48 10^6/uL (4.00-5.40); WHITE BLOOD COUNT 6.3 10^3/uL (4.0-10.0)
[2020-07-15 11:47] LABS: ALBUMIN 4.1 GM/DL (3.2-5.2); ALT/SGPT 33 U/L (12-78); BILIRUBIN,TOTAL 0.5 MG/DL (0.2-1.0); BLOOD UREA NITROGEN 22 MG/DL (7-18); CALCIUM LEVEL 9.4 MG/DL (8.8-10.2); CARBON DIOXIDE LEVEL 31 MEQ/L (21-32); CHLORIDE LEVEL 103 MEQ/L (98-107); CREATININE FOR GFR 0.78 MG/DL (0.55-1.30); GLOMERULAR FILTRATION RATE > 60.0 (>39); GLUCOSE, FASTING 103 MG/DL (70-100); POTASSIUM SERUM 3.8 MEQ/L (3.5-5.1); SODIUM LEVEL 139 MEQ/L (136-145); TOTAL PROTEIN 6.9 GM/DL (6.4-8.2)
--- NOTE | 2020-07-16 00:53 | ECGEPIP ---
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 No significant changes. Electronically Signed on 07-16-2020 0:53:39 EST by Rich Lowe
== END ==
LOC: M LAB 09:22
PROVIDERS: ATTEND Podiatrist
DX: Z01.818 Encounter for other preprocedural examination (principal); M20.11 Hallux valgus (acquired), right foot; M20.40 Other hammer toe(s) (acquired), unspecified foot; M79.674 Pain in right toe(s)

== ENCOUNTER → 2020-08-01 | Outpatient (CLI) | payer MEDICARE, OTHER ==
[~2020-08-01] MED LIST changes: +ALPH600C PO; +BIOT50004 PO; +CALCTAB89 PO; +CHRO1000 PO; +CINN500C12 PO; +D31000TA2 PO; +ECOT81TA5 PO; +HYDR-643 PO; +IBUP80TA PO; +RA M500C PO; +RA T500C2 PO; +REFR0.5D8 OP; +VITA500C24 PO; +ZOFR4TAB16 PO; +ZOLO100T PO
== END ==
LOC: M LABSMTC 08:44
PROVIDERS: ATTEND Anesthesiology
DX: Z01.812 Encounter for preprocedural laboratory examination (principal); Z20.822 Contact with and (suspected) exposure to COVID-19

== ENCOUNTER 2020-08-06 06:14 | Day surgery (SDC) | payer MEDICARE, OTHER ==
[~2020-08-06] VITALS: Ht 167.6 cm; Wt 77.9 kg
[~2020-08-06 06:14] MED LIST changes: +LIDOCAINE 1% MDV 20ML VIAL SQ PRN
[2020-08-06] MEDS ORDERED: GABA-1171 PO (06:54)
[2020-08-06] MEDS ORDERED: LR 1,000 ML IV ONE (07:00)
[2020-08-06] MEDS ORDERED: ceFAZolin SOD 2 GM in IV 1 EA IV ONE (07:00)
[2020-08-06] MEDS ORDERED: LIDOCAINE 2% MDV 20ML VIAL As Ordered ONE (07:09)
[2020-08-06] MEDS ORDERED: dexameTHASONE 4 MG/ML 1ML VIAL (J1100 PER 1MG) As Ordered ONE (07:09)
[2020-08-06] MEDS ORDERED: BACITRACIN PWD 50,000 UNITS VIAL As Ordered ONE (07:10)
[2020-08-06] MEDS ORDERED: BUPIVACAINE HCL 0.5% 30 ML VIAL As Ordered ONE (07:10)
[2020-08-06] MEDS ORDERED: NEOSPORIN GU IRRIG 20 ML VIAL As Ordered ONE (07:10)
[2020-08-06] MEDS ORDERED: fentaNYL 100 MCG/2 ML INJECTION (J3010) As Ordered ONE (07:20)
[2020-08-06] MEDS ORDERED: KETOROLAC 60MG 2ML VIAL As Ordered ONE (07:20)
[2020-08-06] MEDS ORDERED: LIDOCAINE 2% 100MG/5ML SDV (FOR ANES.) As Ordered ONE (07:20)
[2020-08-06] MEDS ORDERED: ONDANSETRON 4MG/2ML VIAL As Ordered ONE (07:20)
[2020-08-06] MEDS ORDERED: propofoL 200 MG/20 ML VIAL As Ordered ONE ×2 (07:20→09:05)
[2020-08-06] MEDS ORDERED: MIDAZOLAM INJ 2MG/2ML VIAL (J2250 PER 1MG) As Ordered ONE ×2 (07:20→08:40)
[2020-08-06] MEDS ORDERED: KETAMINE HCL 200 MG/20 ML VIAL As Ordered ONE (07:34)
[2020-08-06] MEDS ORDERED: ESMOLOL INJ 100MG/10ML VIAL As Ordered ONE (08:37)
[2020-08-06] MEDS ORDERED: PHENYLephrine 500MCG 5ML (100MCG/ML) SYRINGE As Ordered ONE (08:52)
--- NOTE | 2020-08-06 10:58 | REP ---
INDICATION: POST OP. COMPARISON: None. TECHNIQUE: Four views obtained through overlying cast material. FINDINGS: Four views of the right foot demonstrate operative pinning of the IP and MTP joints of the 2nd, 3rd, and 4th digits. Distal 1st metatarsal osteotomy has been performed with a single metallic screw in place. Resection of the distal ends of the proximal phalanges of the 2nd through 5th toes is observed. There is mild plantar spurring. Overlying splint and dressing material. IMPRESSION: Postoperative changes as noted above.. <Electronically signed by Kalia Doan > 08/06/20 [id number]
[2020-08-06 11:55] VITALS: BP 134/72
--- NOTE | 2020-08-07 08:12 | RO ---
OPERATIVE NOTE DATE OF OPERATION: 08/06/2020 PREOPERATIVE DIAGNOSIS: Hallux valgus metatarsus primus varus deformity, right foot, hammertoe deformity, second toe, right foot, hammertoe deformity, third toe, right foot, hammertoe deformity, fourth toe, right foot, hammertoe deformity, fifth toe, right foot, extensor contracture, second metatarsophalangeal joint, right foot, extensor contracture, third metatarsophalangeal joint, right foot, POSTOPERATIVE DIAGNOSIS: Hallux valgus metatarsus primus varus deformity, right foot, hammertoe deformity, second toe, right foot, hammertoe deformity, third toe, right foot, hammertoe deformity, fourth toe, right foot, hammertoe deformity, fifth toe, right foot, extensor contracture, second metatarsophalangeal joint, right foot, extensor contracture, third metatarsophalangeal joint, right foot, PROCEDURE: Reynold bunionetomy right foot 2. Proximal interphalangeal joint arthroplasty with external wire fixation, 0.045 x1, second toe, right foot. 2. Proximal interphalangeal joint arthroplasty with external wire fixation, 0.045 x1, third toe, right foot. 3. Proximal interphalangeal joint arthroplasty with external wire fixation, 0.045 x1, fourth toe, right foot. 4. Proximal interphalangeal joint arthroplasty 5th toe, right foot. 5. Extensor capsulotomy 2 metatarsal phalangeal joint capsulotomy right foot 6. Extensor capsulotomy 3 metatarsal phalangeal joint capsulotomy right foot SURGEON: Artemio Oconnor DPM CYBER CRIME INVESTIGATOR: ANESTHESIA: Local MAC. IRRIGATION: Dilute bacitracin, neomycin and polymyxin B solution. HEMOSTASIS: Ankle pneumatic tourniquet at 225 mmHg for 79 minutes. HARDWARE UTILIZED: Arthrex headless 3.0 x 24 mm headless compression screw and 0.045 wire x3. DESCRIPTION OF OPERATION: On 08/06/2020, this 74-year-old white female was taken from her hospital room to the operating room and placed on the operating table in supine position. Following the induction of IV sedation and local and regional anesthesia, the right lower extremity was prepped and draped in the usual aseptic manner. Attention was directed to the patient's right foot. There was noted to be a hallux valgus deformity. Reynold bunionectomy with screw fixation. At this time, a 5 cm incision was placed over the first metatarsophalangeal joint medial to the extensor tendon. The incision was deepened in the subcutaneous tissues and all crossing venous tributaries were identified, underscored, clamped, cut, ligated or electrocoagulated as necessary A linear capsulotomy was performed in the same plane as the original skin incision. The capsule and periosteal structures were then dissected free in one continuous layer, dorsally, medially and laterally, thus creating a capsular periosteal type envelope. This brought into view the hypertrophied medial eminence of the first metatarsal which was osteotomized from distal to proximal extending medial to the sesamoidal groove. Attention was then directed into the first intermetatarsal space where dissection was carried down to the level of the conjoined tendon. This was sharply dissected free from the fibular sesamoid. Attention was directed to the medial surface of the first metatarsal where a V-shaped osteotomy was performed with a long plantar and short dorsal wing. Upon creation of this osteotomy, the capital fragment was transposed approximately 30% of the width of the shaft of the first metatarsal and fixated with an Arthrex headless 3.0 x 24 mm compression screw. The redundant cortical spike was then osteotomized from dorsal to plantar [id number]. The medial surface was rasped to a smooth contour. The wound was flushed with copious amounts of dilute bacitracin, neomycin and polymyxin B solution. Attention was then directed towards closure with the capsular structures coapted and maintained utilizing 2-0 Monocryl in a simple interrupted type fashion. The subcutaneous tissues utilizing 3-0 Monocryl in a simple interrupted type fashion. The skin incision was coapted and maintained utilizing 3-0 nylon in a simple interrupted fashion. Attention was then directed to the patient's second toe of the right foot where the following procedure was performed. Proximal interphalangeal joint arthroplasty with external wire fixation, 0.045 x1, second toe, right foot. Attention was directed to the patient's second toe of the right foot where there was noted to be a hammertoe deformity. At this time, a 3 cm incision was placed over the proximal interphalangeal joint of the second toe. The incision was deepened through subcutaneous tissues and all crossing venous tributaries were identified, underscored, clamped, cut, ligated and electrocoagulated as necessary. A transverse tenotomy and capsulotomy was then performed at the level of the proximal interphalangeal joint. The extensor expansion and oquendo were then released with a dissection scissor. Utilizing a power saw, an osteotomy was performed through the anatomical neck of the proximal phalanx from dorsal to plantar, medial to lateral [id number]. This was extirpated from the wound. The cartilage at the base of the middle phalanx was then osteotomized from dorsal to plantar [id number] the extirpated from the wound. There was still noted to be an extensor contracture of the second metatarsophalangeal joint as well as constriction on the lateral surface of the joint. Therefore, the following procedure was performed. Extensor capsulotomy, second metatarsophalangeal joint, right foot. Attention was directed to the patient's metatarsophalangeal joint where a stab incision was placed over the second metatarsophalangeal joint and dissection was carried down to the metatarsophalangeal joint capsule. The extensor tendon was freed and delivered proximal to the capsule and a dorsal and lateral release was performed at the metatarsophalangeal joint, straightening the second toe. Attention was then directed back to the toe and utilizing a 0.045 wire, a wire was driven through the middle and distal phalanges, through the proximal phalanx and across the metatarsophalangeal joint with the toe held in a slightly overcorrected position and a plantarflexed and slight medial position. The wire was bent and a protective ball was placed on the distal end of the wire. The wound was flushed with copious amounts of dilute bacitracin, neomycin and polymyxin B solution. Attention was directed to the capsulotomy incision which was repaired with 3-0 nylon in simple interrupted type fashion. The extensor tendon was coapted and repaired with 4-0 braided nylon suture in a four-stranded Aragon repair. The skin was coapted and maintained with 3-0 nylon in a simple interrupted type fashion. Attention was then directed to the patient's third toe of the right foot where the following procedure was performed. Proximal interphalangeal joint arthroplasty with external wire fixation, third toe, right foot. Attention was directed to the patient's third toe of the right foot where the procedure performed on the second toe was now performed on the third toe without variation or deletion, the only exception being that of anatomical location. Attention was then directed to the third metatarsophalangeal joint where there was noted to be extensor contracture. At this time, the procedure performed on the second metatarsophalangeal joint was now performed on the third metatarsophalangeal joint without variation or deletion, the only exception being that of anatomical location. Attention was then directed to the fourth toe of the right foot where the following procedure was performed. Proximal interphalangeal joint arthroplasty with external wire fixation, fourth toe, right foot. Attention was directed the patient's fourth toe of the right foot where the procedure performed on the second toe was now performed on the fourth toe within variation or deletion, the only exception being that of anatomical location. Attention was then directed to the patient's fifth toe of the right foot where the following procedure was performed. Proximal interphalangeal joint arthroplasty, fifth toe, right foot. Attention was directed the patient's fifth toe of the right foot where there was noted to be a hammertoe deformity. At this time, the procedure performed on the second toe was now performed on the fifth toe with the following variations. No external wire was utilized to stabilize the fifth toe. Attention was then directed towards bandaging where a sterile compressive bandage was applied consisting of Adaptic, 4x4s, 4x4 splints, Iron, Kerlix and Coban. The ankle pneumatic tourniquet was deflated and instantaneous capillary filling time was noted to the distal one through five of the patient's right foot. A fiberglass boot cast was then applied the patient's right foot. The patient apparently tolerated the surgical procedure well and was taken from the OR to the recovery room for further monitoring by the anesthesia department. Postoperative instructions were given upon discharge. FAY
== END 2020-08-06 11:55 | disposition home or self-care (01) ==
LOC: M SDC 06:14
PROVIDERS: ATTEND Podiatrist
DX: M20.11 Hallux valgus (acquired), right foot (principal); M20.41 Other hammer toe(s) (acquired), right foot; M79.674 Pain in right toe(s); E11.51 Type 2 diabetes mellitus with diabetic peripheral angiopathy without gangrene; E11.42 Type 2 diabetes mellitus with diabetic polyneuropathy; I10 Essential (primary) hypertension; E78.5 Hyperlipidemia, unspecified; Z92.21 Personal history of antineoplastic chemotherapy; Z85.43 Personal history of malignant neoplasm of ovary; Z88.5 Allergy status to narcotic agent; Z88.8 Allergy status to other drugs, medicaments and biological substances; Z79.899 Other long term (current) drug therapy; F41.9 Anxiety disorder, unspecified; F32.9 Major depressive disorder, single episode, unspecified
CPT/HCPCS: 28270; 28285; 28296; 73630; 88300; C1713; J0690; J1100; J1885; J2250; J2370; J2405; J3010

== ENCOUNTER → 2020-09-02 | Outpatient (CLI) | payer MEDICARE, OTHER ==
[~2020-09-02] MED LIST changes: +GABA-1171 PO; -LIDOCAINE 1% MDV 20ML VIAL SQ PRN
--- NOTE | 2020-09-02 15:18 | REP ---
INDICATION: RT LEG PAIN SWELLING ? DVT COMPARISON: None. TECHNIQUE: Real time compression and duplex Doppler interrogation of the right lower extremity deep venous system is performed. FINDINGS: The right common femoral, superficial femoral and popliteal veins are fully compressible with transducer pressure and demonstrate normal spontaneous and phasic flow, without evidence of deep venous thrombosis. IMPRESSION: No evidence of deep venous thrombosis of the right lower extremity femoral popliteal venous system. <Electronically signed by Fabio Cameron > 09/02/20 [id number]
== END ==
LOC: M RAD 14:30
PROVIDERS: ATTEND Podiatrist
DX: R22.41 Localized swelling, mass and lump, right lower limb (principal)

== ENCOUNTER 2021-02-07 13:52 | Emergency (ER) | payer MEDICARE, OTHER ==
[~2021-02-07] VITALS: Ht 165.1 cm; Wt 75.0 kg
[~2021-02-07 13:52] MED LIST changes: -CEFD1CAP8; +CEFD300C41; +CICL6.6S TOP; -CICL8SOL3 TOP; -KLOR10TA76 PO; +LOSA50TA28 PO; -LOSA50TA88 PO; +POTA-136 PO
[2021-02-07] MEDS ORDERED: TOPI25TA10 (14:18)
[2021-02-07] MEDS ORDERED: GABA-282 (14:18)
[2021-02-07] MEDS ORDERED: LIDOCAINE 5% (LIDODERM) PATCH TD ONE (17:25)
[2021-02-07] MEDS ORDERED: methocarbamoL 500 MG TAB PO ONE ×2 (17:25→19:25)
[2021-02-07] MEDS ORDERED: METH-1164 PO (19:20)
[2021-02-07] MEDS ORDERED: ASPE4PAD TOP (19:20)
[2021-02-07 19:37] VITALS: BP 136/76
[2021-02-07] MEDS ORDERED: **NOTE PATIENT COMMENT** MISC XX SCH (21:00)
== END 2021-02-07 20:17 | disposition home or self-care (01) ==
LOC: M ED 13:52
DX: G89.29 Other chronic pain (principal); M54.5 Low back pain; I10 Essential (primary) hypertension; E78.5 Hyperlipidemia, unspecified; Z88.5 Allergy status to narcotic agent; Z88.6 Allergy status to analgesic agent; Z79.899 Other long term (current) drug therapy

== ENCOUNTER 2021-02-12 14:04 | Emergency (ER) | payer MEDICARE, OTHER ==
[~2021-02-12] VITALS: Ht 167.6 cm; Wt 74.5 kg
[~2021-02-12 14:04] MED LIST changes: +ASPE4PAD TOP; +CEFD1CAP8; -CEFD300C41; -CICL6.6S TOP; +CICL8SOL3 TOP; +GABA-282; -LOSA50TA28 PO; +LOSA50TA88 PO; +METH-1164 PO; +TOPI25TA10
[2021-02-12] MEDS ORDERED: fentaNYL 100 MCG/2 ML INJECTION (J3010) IV ONE ×4 (14:25→22:15)
[2021-02-12] MEDS ORDERED: ONDANSETRON 4MG/2ML VIAL IV ONE (14:25)
--- NOTE | 2021-02-12 15:14 | REP ---
INDICATION: right knee pain; fall. COMPARISON: None. TECHNIQUE: Three views of the right knee were obtained. FINDINGS: There is a right total knee arthroplasty. At the superior margin of the femoral component there has been a comminuted fracture of the femur. There is severe angulation of the distal fracture fragment posteriorly. The tibial component appears intact. IMPRESSION: Comminuted fracture of the distal femoral shaft just proximal to the femoral component of a total knee arthroplasty. <Electronically signed by Clarence Wells > 02/12/21 [id number]
--- NOTE | 2021-02-12 15:17 | REP ---
INDICATION: right femur pain. COMPARISON: None. TECHNIQUE: Three views of the right femur were obtained. FINDINGS: There is a right total knee arthroplasty. There is a comminuted fracture of the femoral shaft just proximal to the superior margin of the femoral component of the arthroplasty. The tibial component is intact. There is a right total hip arthroplasty. The prosthetic femoral head is located in the prostatic acetabula. The distal end of the femoral component is well demonstrated. There is no evidence of loosening or fracture. IMPRESSION: 1. Comminuted fracture of the right femur just proximal to the femoral component of a total knee arthroplasty. 2. Normal right total hip arthroplasty. <Electronically signed by Clarence Wells > 02/12/21 [id number]
--- NOTE | 2021-02-12 18:59 | REPVR ---
PROCEDURE INFORMATION: Exam: CT Right Lower Extremity Without Contrast; Thigh Exam date and time: 02/12/2021 5:39 PM Age: 75 years old Clinical indication: Condition or disease; Other: FX; Additional info: Right distal femur fracture; Further evaluate TECHNIQUE: Imaging protocol: CT of the Right lower extremity without contrast was performed. Exam focused on the thigh. Radiation optimization: All CT scans at this facility use at least one of these dose optimization techniques: automated exposure control; mA and/or kV adjustment per patient size (includes targeted exams where dose is matched to clinical indication); or iterative reconstruction. COMPARISON: CR Femur 02/12/2021 2:30 PM FINDINGS: Bones/joints: There is a comminuted periprosthetic supracondylar fracture of the distal femur. There is motion artifact that degrades image quality. Femoral and Tibial component of the prosthesis are intact. Soft tissues: Hemorrhage infiltrates into the surrounding soft tissues at the level of the fracture. IMPRESSION: Comminuted periprosthetic supracondylar femoral fracture with surrounding hemorrhage within the adjacent soft tissues Electronically signed by: Lyudmila Donahue On 02/12/2021 18:58:54 PM
[2021-02-12 21:32] LABS: RSV AMPLIFICATION NEGATIVE (NEGATIVE)
[2021-02-12 21:37] LABS: BASO # 0.1 10^3/uL (0.0-0.2); BASO % 0.4 % (0.0-1.0); EOS # 0.1 10^3/uL (0.0-0.5); EOS % 0.8 % (0.0-3.0); HEMATOCRIT 40.5 % (36.0-47.0); HEMOGLOBIN 13.3 g/dl (12.0-15.5); LYMPH # 0.9 10^3/uL (1.5-5.0); LYMPH % 7.7 % (24.0-44.0); MEAN CORPUSCULAR HEMOGLOBIN 28.9 pg (27.0-33.0); MEAN CORPUSCULAR HGB CONC 32.8 g/dl (32.0-36.5); MEAN CORPUSCULAR VOLUME 87.9 fl (80.0-96.0); MONO # 0.8 10^3/uL (0.0-0.8); MONO % 6.9 % (2.0-8.0); NEUTROPHILS # 10.1 10^3/uL (1.5-8.5); NEUTROPHILS % 83.6 % (36.0-66.0); PLATELET COUNT, AUTOMATED 216 10^3/uL (150-450); RED BLOOD COUNT 4.61 10^6/uL (4.00-5.40); WHITE BLOOD COUNT 12.1 10^3/uL (4.0-10.0)
[2021-02-13] VITALS: BP 129/70
--- NOTE | 2021-02-13 09:05 | ER ---
ER CONSULTATION DATE: 02/12/2021 TIME: 6 p.m. CONSULTING SERVICE: Orthopedic surgery. CONSULTING PHYSICIAN: Angelo Cifuentes MD HISTORY OF PRESENT ILLNESS: This is a 75-year-old female who sustained a right distal femur periprosthetic fracture after her right leg gave out. The patient had previous right total hip and right total knee arthroplasties performed at [facility]. Dr. Cohn performed the right total knee arthroplasty. After sustaining the ground level fall and distal femur periprosthetic fracture she presented to [facility] for further evaluation and treatment. Orthopedic surgery was consulted for further evaluation and treatment. MEDICAL HISTORY: Diabetes, hypertension, ovarian cancer. SURGICAL HISTORY: Right total hip arthroplasty, right total knee arthroplasty, hysterectomy, left ulna open reduction and internal fixation. SOCIAL HISTORY: She is a nondrinker, nonsmoker, non IV drug user. Lives at home with her . ALLERGIES TO MEDICATIONS: ACETAMINOPHEN. CURRENT MEDICATIONS: Patient reported medications for hypertension, asthma, antidepressants. The patient did not identify with the names of medications as she left her list at home. REVIEW OF SYSTEMS: 14 point review of systems negative unless otherwise described in HPI above. PHYSICAL EXAMINATION: GENERAL: Alert and oriented to person, time and place. RIGHT LOWER EXTREMITY: She had an obvious deformity about the right distal femur with ecchymosis and edema. I was able to visualize this through a posterior slab placed by the ER provider. She had intact light touch to the deep and superficial peroneal, sural, saphenous and tibial nerve distributions. She had 5/5 motor strength in EHL, FHL, tibialis anterior, gastrocnemius and peroneal musculature. Brisk capillary refill to the digits of her right foot, under 2 second capillary refill. Palpable dorsalis pedis and posterior tibial arterial pulse. RADIOGRAPHS: Demonstrated distal femur periprosthetic fracture that extended distal to the proximal edge of the distal femur component of the total knee arthroplasty. Component appeared to be well fixed. However, the fracture extended into the distal femoral component and it would be difficult to determine with confidence if the implant is stable without surgical interrogation. CT scan confirmed knee radiographs demonstrating that the fracture was distal to the proximal edge of the distal femur implant. There were no other abnormalities appreciated other than the right total knee arthroplasty, right hip arthroplasty and fracture at the distal femur propagating distal to the most proximal aspect of the distal femur implant. IMPRESSION: 75-year-old female with right distal femur periprosthetic fracture. PLAN: At this point in time, given the location of the distal femur fracture with extension past the proximal edge of the distal femoral component of the total knee arthroplasty, I feel she is likely going to require distal femur replacement. Given the fact that [facility] does not have the capability for the aforementioned procedure I feel that transferring her to [facility] is the best option at this point. Dr. Cohn performed her total knee arthroplasty in 2018 and is a resident physician at [facility] who would be capable of caring for this injury. At this point in time the patient's right lower extremity is neurovascularly intact and we will proceed with transferring the patient to [facility] or any other hospital with the aforementioned capabilities as soon as possible.
== END 2021-02-12 23:59 | disposition short-term general hospital (02) ==
LOC: EDBD 14:04 → M ED 14:04
DX: M97.11XA Periprosthetic fracture around internal prosthetic right knee joint, initial encounter (principal); S72.301A Unspecified fracture of shaft of right femur, initial encounter for closed fracture; Z96.651 Presence of right artificial knee joint; W01.0XXA Fall on same level from slipping, tripping and stumbling without subsequent striking against object, initial encounter; Y92.009 Unspecified place in unspecified non-institutional (private) residence as the place of occurrence of the external cause; Y93.9 Activity, unspecified; Y99.9 Unspecified external cause status; I10 Essential (primary) hypertension; E78.5 Hyperlipidemia, unspecified; E11.9 Type 2 diabetes mellitus without complications; F32.9 Major depressive disorder, single episode, unspecified; F41.9 Anxiety disorder, unspecified; Z85.43 Personal history of malignant neoplasm of ovary; Z79.899 Other long term (current) drug therapy
CPT/HCPCS: 73552; 73564; 73700; 80047; 85025; 87631; 96374; 96375; 96376; 99284; J2405; J3010

== ENCOUNTER → 2021-07-19 | Outpatient (CLI) | payer MEDICARE, OTHER ==
[~2021-07-19] MED LIST changes: -CEFD1CAP8; +CEFD300C41; +CICL6.6S TOP; -CICL8SOL3 TOP; -D31000TA2 PO; +LOSA50TA28 PO; -LOSA50TA88 PO; +VITA100093 PO
== END ==
LOC: M WHC 10:54
PROVIDERS: ATTEND Internal Medicine
DX: M81.0 Age-related osteoporosis without current pathological fracture (principal)

== ENCOUNTER → 2022-06-12 | Outpatient (CLI) | payer MEDICARE, OTHER ==
[~2022-06-12] MED LIST changes: +GLYC1SUP37 PR; -GLYC2SUP PR; +METR0.7526 TOP; -METR0.7533 TOP; +NYST-38 PO; -NYST50SS PO
== END ==
LOC: M WHC 12:37
PROVIDERS: ATTEND Advanced Practice Midwife
DX: Z12.31 Encounter for screening mammogram for malignant neoplasm of breast (principal)

== ENCOUNTER → 2023-02-20 | Outpatient (REF) | payer MEDICARE, OTHER ==
[~2023-02-20] MED LIST changes: +MONT-5 PO; -SING10TA32 PO
== END ==
LOC: M LAB REF 12:03
PROVIDERS: ATTEND Physician Assistant Medical
DX: M25.50 Pain in unspecified joint (principal)

== ENCOUNTER → 2023-03-01 | Outpatient (REF) | payer MEDICARE, OTHER ==
[~2023-03-01] MED LIST changes: -CEFD300C41; +CEFD300C42
== END ==
LOC: M LAB REF 16:43
PROVIDERS: ATTEND Physician Assistant Medical
DX: M25.50 Pain in unspecified joint (principal); L03.113 Cellulitis of right upper limb

== ENCOUNTER → 2023-04-02 | Outpatient (REF) | payer MEDICARE, OTHER ==
[2023-04-03 15:06] LABS: PERCENT SATURATION 5.9 % (13.2-45.0)
[2023-04-03 15:09] LABS: FERRITIN 13.5 NG/ML (7.3-270.7)
== END ==
LOC: M LAB REF 12:53
PROVIDERS: ATTEND Internal Medicine
DX: N18.31 Chronic kidney disease, stage 3a (principal); D64.9 Anemia, unspecified

== ENCOUNTER → 2023-04-04 | Outpatient (CLI) | payer MEDICARE, OTHER | LOC: M WUC 12:29 | PROVIDERS: ATTEND Internal Medicine | DX: M25.441 Effusion, right hand (principal); M25.50 Pain in unspecified joint; M85.841 Other specified disorders of bone density and structure, right hand ==

== ENCOUNTER → 2023-06-13 | Outpatient (CLI) | payer MEDICARE, OTHER ==
[~2023-06-13] MED LIST changes: -BIOT50004 PO; +BIOT5CAP8 PO; +CEFD1CAP9; -CEFD300C42
== END ==
LOC: M WHC 09:22
PROVIDERS: ATTEND Advanced Practice Midwife
DX: Z12.31 Encounter for screening mammogram for malignant neoplasm of breast (principal)

== ENCOUNTER → 2023-06-13 | Outpatient (CLI) | payer MEDICARE, OTHER | LOC: M PLALAB 11:52 | PROVIDERS: ATTEND Advanced Practice Midwife | DX: Z85.43 Personal history of malignant neoplasm of ovary (principal) ==

== ENCOUNTER → 2023-06-13 | Outpatient (REF) | payer MEDICARE, OTHER | LOC: M PLALAB 10:08 | PROVIDERS: ATTEND Advanced Practice Midwife | DX: Z85.43 Personal history of malignant neoplasm of ovary (principal) ==

== ENCOUNTER → 2023-08-22 | Outpatient (CLI) | payer MEDICARE, OTHER | LOC: M RAD 12:38 | PROVIDERS: ATTEND Internal Medicine | DX: M79.604 Pain in right leg (principal); R60.9 Edema, unspecified ==

== ENCOUNTER → 2023-11-23 | Outpatient (CLI) | payer MEDICARE, OTHER ==
[~2023-11-23] MED LIST changes: +BUPR-597 PO; -BUPR300T92 PO; -IMIP50TA3 PO; +IMIP50TA8 PO
== END ==
LOC: M WUC 09:04
PROVIDERS: ATTEND Physician Assistant
DX: M25.522 Pain in left elbow (principal); Z96.622 Presence of left artificial elbow joint

== ENCOUNTER → 2024-01-01 | Outpatient (REF) | payer MEDICARE, OTHER ==
[2024-01-02 14:04] LABS: PERCENT SATURATION 6.2 % (13.2-45.0)
== END ==
LOC: M LAB REF 13:26
PROVIDERS: ATTEND Internal Medicine
DX: D50.9 Iron deficiency anemia, unspecified (principal)

== ENCOUNTER → 2024-04-29 | Outpatient (REF) | payer MEDICARE, OTHER ==
[~2024-04-29] MED LIST changes: +GABA-1172; +GABA-1172 PO; -GABA-282; -GABA-282 PO; +IMIP50TA10 PO; -IMIP50TA8 PO; +METF-1156 PO; -METF-817 PO
== END ==
LOC: M LAB REF 11:18
PROVIDERS: ATTEND Physician Assistant
DX: L02.511 Cutaneous abscess of right hand (principal)

== ENCOUNTER → 2024-07-24 | Outpatient (CLI) | payer MEDICARE, OTHER | LOC: M WHC 13:19 | PROVIDERS: ATTEND Advanced Practice Midwife | DX: Z12.31 Encounter for screening mammogram for malignant neoplasm of breast (principal); R92.313 Mammographic fatty tissue density, bilateral breasts ==

== ENCOUNTER → 2025-02-18 | Outpatient (CLI) | payer MEDICARE, OTHER ==
[~2025-02-18] MED LIST changes: -ALPH600C PO; +ALPH600C2 PO; -BUPR-597 PO; +BUPR-766 PO; +BUPR150T15 PO; -BUPR1TAB53 PO; -CHRO1000 PO; -RA T500C2 PO; +TOPI-256; -TOPI25TA10; +TURM500C10 PO; +[UNRECOGNIZED DRUG - CODE] PO
== END ==
LOC: M WHC 13:16
PROVIDERS: ATTEND Internal Medicine
DX: Z13.820 Encounter for screening for osteoporosis (principal); M85.88 Other specified disorders of bone density and structure, other site